=== PATIENT | male | born 1995 | race Caucasian/White ===

== ENCOUNTER 2020-04-25 19:48 | Inpatient (IN) | payer OTHER ==
[~2020-04-25] VITALS: Ht 177.8 cm; Wt 77.9 kg
[2020-04-25] MEDS ORDERED: PROPOFOL 1,000 MG/100 ML VIAL As Ordered ONE (19:55)
[2020-04-25 20:39] LABS: AMPHETAMINES LEVEL URINE NEGATIVE (NEGATIVE); BARBITURATES URINE NEGATIVE (NEGATIVE); BENZODIAZEPINES URINE NEGATIVE (NEGATIVE); CANNABINOIDS URINE NEGATIVE (NEGATIVE); COCAINE METABOLITE URINE NEGATIVE (NEGATIVE); METHADONE URINE NEGATIVE (NEGATIVE); OPIATES URINE NEGATIVE (NEGATIVE); PHENCYCLIDINE URINE NEGATIVE (NEGATIVE)
[2020-04-25 20:42] LABS: BASO % 0.2 % (0.0-1.0); EOS # 0.1 10^3/uL (0.0-0.5); EOS % 0.6 % (0.0-3.0); HEMATOCRIT 51.7 % (42.0-52.0); HEMOGLOBIN 17.4 g/dl (13.5-17.5); LYMPH # 1.5 10^3/uL (1.5-5.0); LYMPH % 10.9 % (24.0-44.0); MEAN CORPUSCULAR HEMOGLOBIN 29.4 pg (27.0-33.0); MEAN CORPUSCULAR HGB CONC 33.7 g/dl (32.0-36.5); MEAN CORPUSCULAR VOLUME 87.5 fl (80.0-96.0); MONO # 0.7 10^3/uL (0.0-0.8); MONO % 5.3 % (0.0-5.0); NEUTROPHILS % 82.6 % (36.0-66.0); PLATELET COUNT, AUTOMATED 231 10^3/uL (150-450); RED BLOOD COUNT 5.91 10^6/uL (4.30-6.10); WHITE BLOOD COUNT 13.3 10^3/uL (4.0-10.0)
--- NOTE | 2020-04-25 21:09 | REPVR ---
PROCEDURE INFORMATION: Exam: CT Head Without Contrast Exam date and time: 04/25/2020 8:52 PM Age: 24 years old Clinical indication: Pain; Headache; Additional info: AMS TECHNIQUE: Imaging protocol: Computed tomography of the head without contrast. Radiation optimization: All CT scans at this facility use at least one of these dose optimization techniques: automated exposure control; mA and/or kV adjustment per patient size (includes targeted exams where dose is matched to clinical indication); or iterative reconstruction. COMPARISON: No relevant prior studies available. FINDINGS: Brain: Normal. No hemorrhage. Unremarkable white matter. No mass effect. Ventricles: Normal. No ventriculomegaly. Bones/joints: Unremarkable. No acute fracture. Sinuses: Visualized sinuses are unremarkable. No fluid levels. Mastoid air cells: Visualized mastoid air cells are well aerated. Soft tissues: Unremarkable. IMPRESSION: Negative noncontrast head CT. Electronically signed by: Chip Robledo On 04/25/2020 21:09:10 PM
[2020-04-25] MEDS ORDERED: SUCCINYLCHOLINE INJ 200 MG/10 ML VIAL (J0330) IV STA (21:21)
[2020-04-25 21:25] LABS: ALBUMIN 4.2 GM/DL (3.2-5.2); ALT/SGPT 35 U/L (12-78); BILIRUBIN,DIRECT < 0.1 MG/DL (0.0-0.2); BILIRUBIN,TOTAL 0.4 MG/DL (0.2-1.0); BLOOD UREA NITROGEN 15 MG/DL (7-18); CARBON DIOXIDE LEVEL 24 MEQ/L (21-32); CHLORIDE LEVEL 109 MEQ/L (98-107); CREATININE FOR GFR 0.95 MG/DL (0.70-1.30); ETHYL ALCOHOL (ETHANOL) 0.333 % (0.000-0.010); GLOMERULAR FILTRATION RATE > 60.0 (>60); GLUCOSE, FASTING 81 MG/DL (70-100); POTASSIUM SERUM 4.7 MEQ/L (3.5-5.1); SODIUM LEVEL 145 MEQ/L (136-145); TOTAL PROTEIN 8.4 GM/DL (6.4-8.2)
[2020-04-25] MEDS ORDERED: propofoL 1,000 MG in IV 1 EA IV SCH (21:30)
[2020-04-25] MEDS ORDERED: propofoL 200 MG/20 ML VIAL IV ONE (21:30)
[2020-04-25] MEDS ORDERED: ALBUTEROL SULFATE 2.5 MG/0.5 ML INH NEB SOLN NEB PRN (22:30)
[2020-04-25] MEDS ORDERED: THIAMINE 200MG/2ML VIAL (J3411 PER 100MG) IV ONE (23:00)
[2020-04-25] MEDS ORDERED: FOLIC ACID 1 MG in NS 50 ML IV ONE (23:00)
[2020-04-26] VITALS (33 sets, daily range): BP systolic 97–124; BP diastolic 53–77; O2SAT 99–100
[2020-04-26] MEDS: D5W/0.9% SODIUM CHLORIDE 1,000 ML IV SCH ×3 (00:46→20:00)
[2020-04-26] MEDS: HEPARIN SOD (PORCINE) 5000UNITS/ML VIAL (J1644 PER 1000UNITS) SC SCH ×4 (00:48→22:12)
[2020-04-26] MEDS: propofoL 1,000 MG in IV 1 EA IV SCH ×7 (01:08→20:01)
[2020-04-26] MEDS: MIDAZOLAM INJ 2MG/2ML VIAL (J2250 PER 1MG) IV PRN ×11 (05:04→22:21)
[2020-04-26 05:05] LABS: BASO % 0.3 % (0.0-1.0); EOS # 0.1 10^3/uL (0.0-0.5); EOS % 1.3 % (0.0-3.0); HEMATOCRIT 42.4 % (42.0-52.0); LYMPH # 2.2 10^3/uL (1.5-5.0); LYMPH % 21.2 % (24.0-44.0); MEAN CORPUSCULAR HGB CONC 34.2 g/dl (32.0-36.5); MEAN CORPUSCULAR VOLUME 87.6 fl (80.0-96.0); MONO # 0.8 10^3/uL (0.0-0.8); MONO % 7.2 % (0.0-5.0); NEUTROPHILS # 7.4 10^3/uL (1.5-8.5); NEUTROPHILS % 69.7 % (36.0-66.0); PLATELET COUNT, AUTOMATED 217 10^3/uL (150-450); RED BLOOD COUNT 4.84 10^6/uL (4.30-6.10); WHITE BLOOD COUNT 10.6 10^3/uL (4.0-10.0)
[2020-04-26 05:08] LABS: HEMOGLOBIN 14.5 g/dl (13.5-17.5)
[2020-04-26 05:28] LABS: ALBUMIN 3.3 GM/DL (3.2-5.2); ALT/SGPT 24 U/L (12-78); BILIRUBIN,TOTAL 0.4 MG/DL (0.2-1.0); BLOOD UREA NITROGEN 12 MG/DL (7-18); CALCIUM LEVEL 7.5 MG/DL (8.5-10.1); CARBON DIOXIDE LEVEL 24 MEQ/L (21-32); CHLORIDE LEVEL 116 MEQ/L (98-107); CHOLESTEROL LEVEL 151 MG/DL (< 200); CPK CREATINE PHOSPHOKINASE 260 U/L (39-308); CREATININE FOR GFR 0.88 MG/DL (0.70-1.30); GLOMERULAR FILTRATION RATE > 60.0 (>60); GLUCOSE, FASTING 97 MG/DL (70-100); LDH LACTATE DEHYDROGENASE 214 U/L (87-241); PHOSPHORUS LEVEL 3.8 MG/DL (2.5-4.9); SODIUM LEVEL 148 MEQ/L (136-145); TOTAL PROTEIN 6.1 GM/DL (6.4-8.2); TRIGLYCERIDES LEVEL 201 MG/DL (<150)
[2020-04-26] MEDS: CHLORHEXIDINE GLUCONATE 0.12 % 15ML UDC (PERIDEX ORAL RINSE) MT SCH ×2 (08:28→20:00)
[2020-04-26] MEDS ORDERED: PANTOPRAZOLE 40MG VIAL (C9113 PER 1) IV SCH (09:00)
--- NOTE | 2020-04-26 09:31 | REP ---
CHEST, PORTABLE: There is no evidence of acute infiltrate. No pleural effusion is seen. The heart is normal in size. The mediastinal silhouette is unremarkable. The visualized osseous structures are intact. There is an endotracheal tube with the tip 4 cm above the kai. IMPRESSION: No acute pulmonary disease. There is an endotracheal tube with the tip 4 cm above the kai. Electronically Signed by Sd Corley MD 04/26/2020 10:24 A
[2020-04-26 09:36] LABS: ABG HCO3 22.1 MEQ/L (22.0-26.0); ABG O2 SATURATION 99.4 % (95.0-99.0); ABG PARTIAL PRESSURE CO2 39.8 mmHg (35.0-45.0); ABG PARTIAL PRESSURE O2 184.7 mmHg (75.0-100.0); ABG STANDARD HCO3 22.1 MEQ/L (22.0-26.0); ABG TOTAL CO2 23.4 MEQ/L (22.0-29.0); ABG pH (ARTERIAL) 7.363 UNITS (7.350-7.450)
--- NOTE | 2020-04-26 09:38 | REP ---
CHEST, SINGLE VIEW: Single view of the chest is performed and compared to prior study of 04/25/2020. No acute infiltrate is seen. Heart is normal in size and mediastinal silhouette is unremarkable. Endotracheal tube is again seen with the tip between the level of the clavicles and the kai. Nasogastric tube is seen with sideport in the stomach. Electronically Signed by Sd Corley MD 04/26/2020 10:25 A
[2020-04-26] MEDS: MORPHINE 2 MG/ML 1ML VIAL (J2270) IV PRN ×2 (11:26→14:03)
[2020-04-26] MEDS: PANTOPRAZOLE 40MG VIAL (C9113 PER 1) IV SCH (20:01)
[2020-04-26] MEDS ORDERED: SODIUM CHLORIDE 0.9% 1000ML IV ONE (20:45)
[2020-04-26] MEDS ORDERED: NS 500 ML IV ONE (22:15)
[2020-04-27] VITALS (12 sets, daily range): BP systolic 95–134; BP diastolic 51–74
[2020-04-27] MEDS: propofoL 1,000 MG in IV 1 EA IV SCH ×3 (00:14→05:22)
[2020-04-27] MEDS: D5W/0.9% SODIUM CHLORIDE 1,000 ML IV SCH (03:49)
[2020-04-27] MEDS: MIDAZOLAM INJ 2MG/2ML VIAL (J2250 PER 1MG) IV PRN (04:32)
[2020-04-27] MEDS: HEPARIN SOD (PORCINE) 5000UNITS/ML VIAL (J1644 PER 1000UNITS) SC SCH ×4 (04:32→21:01)
[2020-04-27] MEDS: MORPHINE 2 MG/ML 1ML VIAL (J2270) IV PRN (04:32)
[2020-04-27 05:11] LABS: BASO % 0.4 % (0.0-1.0); EOS # 0.2 10^3/uL (0.0-0.5); HEMATOCRIT 38.9 % (42.0-52.0); LYMPH # 1.8 10^3/uL (1.5-5.0); LYMPH % 23.7 % (24.0-44.0); MEAN CORPUSCULAR HEMOGLOBIN 29.4 pg (27.0-33.0); MEAN CORPUSCULAR HGB CONC 32.1 g/dl (32.0-36.5); MEAN CORPUSCULAR VOLUME 91.5 fl (80.0-96.0); MONO % 13.8 % (0.0-5.0); NEUTROPHILS # 4.5 10^3/uL (1.5-8.5); NEUTROPHILS % 59.8 % (36.0-66.0); PLATELET COUNT, AUTOMATED 144 10^3/uL (150-450); RED BLOOD COUNT 4.25 10^6/uL (4.30-6.10); WHITE BLOOD COUNT 7.5 10^3/uL (4.0-10.0)
[2020-04-27 05:18] LABS: HEMOGLOBIN 12.5 g/dl (13.5-17.5)
[2020-04-27 05:36] LABS: ALBUMIN 2.5 GM/DL (3.2-5.2); ALT/SGPT 17 U/L (12-78); BILIRUBIN,TOTAL 0.4 MG/DL (0.2-1.0); BLOOD UREA NITROGEN 11 MG/DL (7-18); CALCIUM LEVEL 7.4 MG/DL (8.5-10.1); CARBON DIOXIDE LEVEL 24 MEQ/L (21-32); CHLORIDE LEVEL 117 MEQ/L (98-107); CHOLESTEROL LEVEL 119 MG/DL (< 200); CPK CREATINE PHOSPHOKINASE 147 U/L (39-308); CREATININE FOR GFR 0.92 MG/DL (0.70-1.30); GLOMERULAR FILTRATION RATE > 60.0 (>60); GLUCOSE, FASTING 93 MG/DL (70-100); LDH LACTATE DEHYDROGENASE 187 U/L (87-241); PHOSPHORUS LEVEL 3.7 MG/DL (2.5-4.9); POTASSIUM SERUM 3.9 MEQ/L (3.5-5.1); SODIUM LEVEL 147 MEQ/L (136-145); TRIGLYCERIDES LEVEL 162 MG/DL (<150)
[2020-04-27 05:40] LABS: ABG BASE EXCESS -1.3 (-2.0-2.0); ABG HCO3 23.6 MEQ/L (22.0-26.0); ABG O2 SATURATION 97.4 % (95.0-99.0); ABG PARTIAL PRESSURE CO2 40.4 mmHg (35.0-45.0); ABG PARTIAL PRESSURE O2 95.5 mmHg (75.0-100.0); ABG STANDARD HCO3 23.4 MEQ/L (22.0-26.0); ABG TOTAL CO2 24.8 MEQ/L (22.0-29.0); ABG pH (ARTERIAL) 7.384 UNITS (7.350-7.450)
--- NOTE | 2020-04-27 07:26 | REP ---
Clinical: Endotracheal tube placement. Comparison: 04/26/2020. Findings: Endotracheal tube 3.5 cm above the kai. Nasogastric tube courses below left hemidiaphragm. Mediastinum and cardiac silhouette are normal. Lung zhu are relatively clear and without focal consolidation, obvious effusion, or pneumothorax. Impression: Lines and tubes in satisfactory position. No focal consolidation or effusion. Electronically Signed by Fran Mccrary MD 04/27/2020 07:18 A
[2020-04-27] MEDS: CHLORHEXIDINE GLUCONATE 0.12 % 15ML UDC (PERIDEX ORAL RINSE) MT SCH (07:35)
[2020-04-27] MEDS: PANTOPRAZOLE 40MG VIAL (C9113 PER 1) IV SCH (07:35)
--- NOTE | 2020-04-27 09:36 | CCN ---
DATE: 04/25/2020 CRITICAL CARE NOTE: I was called to the emergency department to evaluate this 24-year-old male found by others at [place] unresponsive with a history of alcohol intake. The time down is not known. On route, a nasal airway was attempted in the field and the [facility] was [facility] In the emergency department, a depressed level of consciousness was noted. He was retching and vomiting, unable to verbalize. An endotracheal tube was placed to protect his airway and propofol was started for sedation. His vital signs are temperature 94.7, pulse rate 81, respirations 16/16 delivered, blood pressure 127/83. He is obtunded with propofol infusing. HEENT is normocephalic, atraumatic. There is a gritty sand-like material in his hair. His pupils are about 5 mm and reactive. I was unable to test extraocular motion. There are no clear doll's eyes movements. His neck is supple without meningismus and no deformity. There is dried blood in the right nares. A #8 endotracheal tube is at 23 cm. There is no air leak. Heart sounds are regular without appreciable murmur. The chest is symmetric. Coarse clear breath sounds appreciated bilaterally. Abdomen is soft with intact bowel sounds in the right lower quadrant. Extremities are cool. He is shivering. There are pulses on all four extremities. No deformities are appreciated. There is a tattoo on his right shoulder. DIAGNOSTIC STUDIES: Sodium is 145, potassium 4.7, chloride 109, CO2 24, BUN 15, creatinine 0.95, glucose 81. AST 34, ALT 35. Albumin 4.2. Toxicology panel was negative. Alcohol level 0.333. His white cell count is 13.3, hemoglobin 17.4, hematocrit 51.2, platelet count 231,000. Arterial blood gases showed a pH of 7.34, pCO2 42, pO2 202. Imaging studies were performed. CT scan of the head was read as negative noncontrast head CT. Chest x-ray was performed. No report is available. On review of the film, the endotracheal tube is in good position. Lung zhu are well expanded bilaterally. There are no bony abnormalities. Heart size appears normal. The primary problem requiring critical attention is acute respiratory failure. Will initiate mechanical ventilation and recheck arterial blood gases. Alcohol toxicity acute - will proceed with hydration, administer B12 and folate. Hypothermia - the patient is undergoing external warming, will continue with external morning after transfer. Deep venous thrombosis (DVT) prophylaxis will be addressed with sequential hose and subcutaneous heparin. Ulcer prophylaxis will be addressed with Protonix. Glycemic control be monitored. I have discussed the case with the emergency department physician and nursing staff. I have subsequently discussed the case with intensive care unit (ICU) team and we will facilitate transfer to the intensive care unit now for continued management. The patient's condition is critical. Prognosis is guarded. 1 hour and 32 minutes was spent in the provision of bedside critical care and coordination.
--- NOTE | 2020-04-27 10:28 | CCN ---
DATE: 04/26/2020 The patient is seen in the intensive care unit intubated, mechanically ventilated, critically ill. Through the night, he has become a bit more responsive, follows some simple commands. Temperature is 100, pulse rate 102, respirations 16/16 delivered, blood pressure 119/70. Ins and outs for the past 24 hours are 923 kin and 715 out. He remains ill appearing. Oral endotracheal tube is in place at 23 cm. Neck is supple. Heart sounds are regular without appreciable murmur. His breath sounds are clear to auscultation in all zhu. Abdomen is soft. There are some bowel sounds in the right lower quadrant. Extremities are cool. Pulses are palpable. Diagnostic Studies: Sodium is 148, potassium 4.0, chloride 116, CO2 24, BUN 12, creatinine 0.88, glucose 97. White cell count is down to 10.6, hemoglobin 14.5, hematocrit 42.4, platelet count 217,000. AST is 17, ALT 24, albumin 3.3, phosphorus 3.8, and LDH 214. Imaging was reviewed. Report is pending, but the endotracheal tube and nasogastric (NG) tube are in good position. Lung zhu are clear. The primary problem requiring critical attention is acute respiratory failure. The patient is becoming a bit more responsive, but spontaneous respiratory efforts are only intermittent at this point. Will continue mechanical ventilatory support. Alcohol intoxication. The patient has received hydration, B12 and folate. Liver enzymes are acceptable. Deep vein thrombosis (DVT) prophylaxis is being addressed with some subcutaneous heparin. Ulcer prophylaxis is being addressed with Protonix. Glycemic control is acceptable. The patient's condition remains critical. We will continue supportive care with sedation vacation the first thing in the morning. If at that point he is more responsive and with a more consistent respiratory effort, will wean him from mechanical ventilation. The patient's condition is critical. Prognosis is guarded. 77 minutes was spent in provision of bedside critical care and coordination.
[2020-04-28] MEDS: HEPARIN SOD (PORCINE) 5000UNITS/ML VIAL (J1644 PER 1000UNITS) SC SCH (05:39)
[2020-04-28 06:00] VITALS: BP 128/69
--- NOTE | 2020-04-28 07:00 | CCN ---
DATE: 04/27/2020 The patient is seen in the intensive care unit, intubated, mechanically ventilated, critically ill. His temperature is 98, pulse rate 61, respirations 16 over 16 delivered, blood pressure 107/65. Intake and output (I and O) for the past 24 hours, 4572 in, 1810 out. Since midnight, 783 in, 350 out. At bedside, he is ill appearing. His oral endotracheal tube is in good position as is a nasogastric (NG) tube. Neck is supple. Heart sounds are regular without appreciable murmur. Breath sounds are clear to auscultation bilaterally. Chest is symmetric, moves symmetrically with ventilated effort. Abdomen is soft. There are bowel sounds in right lower quadrant. The extremities show no significant edema. The NG tube, which had been draining bloody appearing material, is now draining bile. DIAGNOSTIC STUDIES: Sodium is 147, potassium 3.9, chloride 117, CO2 of 24, BUN 11, creatinine 0.92, glucose is 93. White cell count is down to 7.5, hemoglobin 12.5, hematocrit 38.9, platelet count 144,000. Arterial blood gases show a pH of 7.38, pCO2 of 40, pO2 of 95 on IMV, FiO2 of 0.25. Chest x-ray shows tubes and lines to be in good position. Lung zhu are clear. The primary problem requiring critical attention is acute respiratory failure. The patient's blood gases are improved. We will proceed with weaning and extubation. Alcohol intoxication, resolving. The possible gastrointestinal (GI) bleed, the bloody material draining from the nasogastric tube has ceased. His hemoglobin did drop slightly. We will monitor. Deep venous thrombosis (DVT) and ulcer prophylaxis are in place. The patient remains critically ill. Prognosis is guarded. 37 minutes was spent in the provision of bedside critical care and coordination.
[2020-04-28 08:26] LABS: HEMATOCRIT 39.3 % (42.0-52.0); HEMOGLOBIN 13.5 g/dl (13.5-17.5); MEAN CORPUSCULAR HGB CONC 34.4 g/dl (32.0-36.5); MEAN CORPUSCULAR VOLUME 87.3 fl (80.0-96.0); PLATELET COUNT, AUTOMATED 182 10^3/uL (150-450); WHITE BLOOD COUNT 9.8 10^3/uL (4.0-10.0)
[2020-04-28 08:58] LABS: ALBUMIN 3.2 GM/DL (3.2-5.2); ALT/SGPT 22 U/L (12-78); BILIRUBIN,TOTAL 0.7 MG/DL (0.2-1.0); BLOOD UREA NITROGEN 8 MG/DL (7-18); CALCIUM LEVEL 8.5 MG/DL (8.5-10.1); CARBON DIOXIDE LEVEL 29 MEQ/L (21-32); CHLORIDE LEVEL 108 MEQ/L (98-107); CREATININE FOR GFR 0.98 MG/DL (0.70-1.30); GLOMERULAR FILTRATION RATE > 60.0 (>60); GLUCOSE, FASTING 95 MG/DL (70-100); POTASSIUM SERUM 3.8 MEQ/L (3.5-5.1); SODIUM LEVEL 143 MEQ/L (136-145); TOTAL PROTEIN 6.5 GM/DL (6.4-8.2)
--- NOTE | 2020-04-28 12:53 | DS.PDOC ---
Discharge Summary General Date of Admission April 25, 2020 at 22:29 Date of Discharge 04/28/20 Discharge Summary PROCEDURES PERFORMED DURING STAY: [None]. ADMITTING DIAGNOSES: 1. acute respiratory failure 2. acute alcohol toxicity 3. hypothermia COMPLICATIONS/CHIEF COMPLAINT: Acute Respiratory Failure. HISTORY OF PRESENT ILLNESS: 24 yo male who apparently had been drinking alcohol with his friends, and while intoxicated were playing at a [employer], when the patient became unconscious. He was brought to [facility] and admitted to ICU, and intubated. He responded well to IV hydration, and was extubated. He was downgraded to medical floor, and observed for one day. He did have some, bloody drainage from his NG tube, with a minor drop in his hemoglobin. The bloody drainage spontaneously resolved, and his Hgb normalized. Hospital was otherwise unremarkable, and patient discharged home with outpatient follow up with his PCP. DISCHARGE MEDICATIONS: Please see below. ALLERGIES: Please see below. PHYSICAL EXAMINATION ON DISCHARGE: VITAL SIGNS: Please see below. GENERAL: NAD HEENT: NC/AT, EOMI Lungs: CTA B/L Heart: +S1S2, RRR Abd: soft, NT, +BS Ext: no edema LABORATORY DATA: Please see below. ACTIVITY: [As tolerated]. DIET: Regular DISPOSITION: 01 Home, Self-Care. DISCHARGE INSTRUCTIONS: 1. Follow up with PCP in 3-5 days. 2. Avoid alcohol abuse. DISCHARGE CONDITION: [Stable]. TIME SPENT ON DISCHARGE: 35minutes. Vital Signs/I&Os Vital Signs Date Time Temp Pulse Resp B/P (MAP) Pulse Ox O2 Delivery O2 Flow Rate FiO2 04/28/20 06:00 99.2 88 16 128/69 (88) 96 Room Air 04/27/20 09:05 28 I&O- Last 24 Hours up to 6 AM 04/28/20 06:00 Intake Total 1990 ml Output Total 1385 ml Balance 605 ml Laboratory Data Labs 24H Laboratory Tests 2 04/28/20 07:57: Nucleated Red Blood Cells % (auto) 0.0, Anion Gap 6L, Glomerular Filtration Rate > 60.0, Calcium Level 8.5, Total Bilirubin 0.7#, Aspartate Amino Transf (AST/SGOT) 18, Alanine Aminotransferase (ALT/SGPT) 22, Alkaline Phosphatase 45, Total Protein 6.5#, Albumin 3.2#, Albumin/Globulin Ratio 1.0 CBC/BMP Laboratory Tests 6/2/20 07:57 Discharge Medications Unable to Obtain Active Prescriptions or Reported Meds Allergies Coded Allergies: amoxicillin (Verified Allergy, Unknown, 04/25/20) AISLINN CHURCHILL MD Apr 28, 2020 12:53
--- NOTE | 2020-04-28 14:28 | IPNPDOC ---
Text Note Date of Service The patient was seen on 04/27/20. NOTE Subjective: Patient seen and examined at bedside. Objective: General: NAD, lying comfortably in bed, lethargic but easily arousable HEENT: NC/AT, EOMI Lungs: CTA B/L Heart: +S1S2, RRR Abd: soft, NT, +BS Ext: no edema A/P: 24 yo male downgraded from ICU to medical floor, admitted for respiratory failure secondary to alcohol intoxication. #respiratory failure - extubated today Dispo: to observe closely following extubation VS,Fishbone, I+O VS, Fishbone, I+O Laboratory Tests 04/28/20 07:57 Vital Signs Date Time Temp Pulse Resp B/P (MAP) Pulse Ox O2 Delivery O2 Flow Rate FiO2 04/28/20 06:00 99.2 88 16 128/69 (88) 96 Room Air 04/27/20 09:05 28 I&O- Last 24 Hours up to 6 AM 04/28/20 06:00 Intake Total 1990 ml Output Total 1385 ml Balance 605 ml AISLINN CHURCHILL MD Apr 28, 2020 14:28
== END 2020-04-28 12:16 | disposition home or self-care (01) | DRG 917 ==
LOC: M ED 19:48 → EDBD 19:48 → EDAGE 19:48 → M ED INP 22:29 → ENRESERV 23:04 → M ICU 04-26 00:14 → M MSPAV 04-27 12:48
PROVIDERS: ADMIT Internal Medicine Pulmonary Disease; ATTEND Internal Medicine
PROC: 5A1945Z Respiratory Ventilation, 24-96 Consecutive Hours (ICD-10-PCS; principal; 2020-04-25)
PROC: 0BH17EZ Insertion of Endotracheal Airway into Trachea, Via Natural or Artificial Opening (ICD-10-PCS; 2020-04-25)
DX: T51.91XA Toxic effect of unspecified alcohol, accidental (unintentional), initial encounter (principal); J96.00 Acute respiratory failure, unspecified whether with hypoxia or hypercapnia; R68.0 Hypothermia, not associated with low environmental temperature; F10.129 Alcohol abuse with intoxication, unspecified

== ENCOUNTER 2021-01-01 04:14 | Emergency (ER) | payer OTHER ==
[~2021-01-01] VITALS: Ht 175.3 cm; Wt 76.5 kg
[2021-01-01] MEDS ORDERED: HYDR50TA70 PO (04:22)
[2021-01-01] MEDS ORDERED: PRAZ5CAP PO (04:22)
[2021-01-01] MEDS ORDERED: PROPRANOLOL (04:22)
--- NOTE | 2021-01-01 04:56 | REPVR ---
PROCEDURE INFORMATION: Exam: US Scrotum Exam date and time: 01/01/2021 4:47 AM Age: 25 years old Clinical indication: Scrotum pain; Additional info: Left testicular pain TECHNIQUE: Imaging protocol: Real-time ultrasound of the scrotum and contents with color Doppler and image documentation. COMPARISON: No relevant prior studies available. FINDINGS: Right testicle: The right testis is homogeneous and measures 2.7 x 3.7 x 2.7 cm. There is normal color flow and normal pulsatile Doppler waveforms. Left testicle: The left testis is homogeneous and measures 3.0 x 3.9 x 2.2 cm. There is color flow and normal pulsatile Doppler waveforms. Color flow appears slightly increased compared to the contralateral side. Epididymides: The right epididymal head measures 6 mm. The left epididymal head measures 7 mm. Scrotum: Normal. IMPRESSION: 1. Slightly increased blood flow to the left testis suggesting left orchitis. 2. Otherwise negative testicular sonogram. No torsion. Electronically signed by: Chip Robledo On 01/01/2021 04:55:19 AM
[2021-01-01] MEDS ORDERED: DOXY100C37 PO (06:24)
[2021-01-01 06:26] VITALS: BP 130/72
[2021-01-01 06:51] LABS: CHLAMYDIA DNA AMPLIFICATION NEGATIVE (NEGATIVE); GC DNA AMPLIFICATION NEGATIVE (NEGATIVE)
== END 2021-01-01 06:30 | disposition home or self-care (01) ==
LOC: M ED 04:14
DX: N45.2 Orchitis (principal); Z88.1 Allergy status to other antibiotic agents